=== PATIENT | female | born 1990 ===

== ENCOUNTER 2016-07-18 03:36 | Emergency (ER) | payer OTHER ==
[2016-07-18 03:51] VITALS: RESP 20
--- NOTE | 2016-07-18 04:10 | C.PDOC ---
History Of Present Illness Patient present to the ER with a complaint of shortness of breath. Patient states she woke up with symptoms. Patient notes she is 7 weeks and has had similar episodes in previous pregnancies. Patient reports having asthma and is 3, para 1. Denies fever, chills, nausea, vomiting, and diarrhea. Time Seen by Provider: 07/18/16 04:09 Chief Complaint (Nursing): Shortness Of Breath History Per: Patient History/Exam Limitations: no limitations Onset/Duration Of Symptoms: Hrs Current Symptoms Are (Timing): Still Present Severity: Mild Pain Scale Rating Of: 3 Associated Symptoms: denies: Fever, Chills Past Medical History Vital Signs: Last Vital Signs Temp 98.5 F 07/18/16 03:45 Pulse 68 07/18/16 03:45 Resp 20 07/18/16 04:34 BP 102/61 07/18/16 03:45 Pulse Ox 99 07/18/16 04:43 - Medical History PMH: Asthma Family History: States: No Known Family Hx - Social History Hx Tobacco Use: No Hx Alcohol Use: No Hx Substance Use: No - Immunization History Hx Tetanus Toxoid Vaccination: No Hx Influenza Vaccination: No Hx Pneumococcal Vaccination: No Review Of Systems Except As Marked, All Systems Reviewed And Found Negative. Constitutional: Negative for: Fever, Chills Cardiovascular: Negative for: Chest Pain Respiratory: Positive for: Shortness of Breath Gastrointestinal: Negative for: Nausea, Vomiting, Diarrhea Physical Exam - Physical Exam Appears: Well, Non-toxic Skin: Warm, Dry Oral Mucosa: Moist Chest: Symmetrical Cardiovascular: Rhythm Regular Respiratory: No Rales, No Rhonchi, No Wheezing Gastrointestinal/Abdominal: Soft, No Tenderness, No Distention, No Guarding, No Rebound Extremity: Normal ROM, No Tenderness Neurological/Psych: Oriented x3 ED Course And Treatment - Laboratory Results Result Diagrams: 07/18/16 04:33 07/18/16 04:33 O2 Sat by Pulse Oximetry: 99 Progress Note: Blood work, nebulizer treatment, and peak flow pre/post TX bid ordered. IV fluids and Reglan IVPB administered. Disposition Counseled Patient/Family Regarding: Studies Performed, Diagnosis - Disposition Disposition Time: 04:10 Condition: UNKNOWN - Clinical Impression Clinical Impression: Abdominal pain Physician Patient Turnover Patient Signed Over To: Ryan Estrada Handoff Comments: pending US and disposition
[2016-07-18] MEDS ORDERED: Sodium Chloride 0.9% 1,000 ML IV ONE (04:15)
[2016-07-18 04:20] LABS: RBC URINE 3 /hpf (0-3); URINE BACTERIA RARE (<OCC); URINE BILIRUBIN NEGATIVE (NEGATIVE); URINE BLOOD NEGATIVE (NEGATIVE); URINE COLOR Yellow (YELLOW); URINE GLUCOSE (UA) NORMAL (Normal); URINE KETONE 2+ mg/dL (NEGATIVE); URINE LEUKOCYTE ESTERASE NEG Leu/uL (Negative); URINE PROTEIN NEGATIVE (NEGATIVE); URINE UROBILINOGEN NORMAL mg/dL (0.2-1.0); WBC URINE 3 /hpf (0-5)
[2016-07-18] MEDS: Albuterol-Ipratrop 3 mg / 0.5 (3 ml) UD IH SCH ×2 (04:30→04:35)
[2016-07-18] MEDS ORDERED: Sodium Chloride 0.9% 1,000 ML ONE (04:41)
[2016-07-18] MEDS ORDERED: Albuterol-Ipratrop 3 mg / 0.5 (3 ml) UD ONE (04:41)
[2016-07-18 04:48] LABS: CHLORIDE 102 mmol/L (98-107); INR 1.1
[2016-07-18 04:49] LABS: POTASSIUM 3.9 mmol/L (3.6-5.2); SODIUM 137 mmol/L (132-148)
[2016-07-18 04:51] LABS: AST/SGOT 31 U/L (14-36); BILIRUBIN,TOTAL 1.4 mg/dL (0.2-1.3); CARBON DIOXIDE 23 mmol/L (22-30); GFR AFRICAN-AMERICAN > 60
[2016-07-18 04:52] LABS: ALB/GLOB RATIO 1.1 (1.0-2.1); ALKALINE PHOSPHATASE 33 U/L (38-126); ALT/SGPT 22 U/L (9-52); BLOOD UREA NITROGEN 9 mg/dL (7-17); CALCIUM 8.5 mg/dl (8.6-10.4); GLUCOSE,RANDOM 85 mg/dL (65-105); TOTAL PROTEIN 6.9 g/dL (6.3-8.3)
[2016-07-18] MEDS ORDERED: DiphenhydrAMINE 50 mg/ml Inj ONE (05:02)
[2016-07-18] MEDS ORDERED: DiphenhydrAMINE 50 mg/ml Inj IVP STA (05:10)
[2016-07-18 05:29] LABS: BASO % 0.5 % (0.0-2.0); EOS % 0.8 % (0.0-4.0); HEMATOCRIT 34.9 % (34.0-47.0); LYMPH # 1.6 K/uL (1.0-4.3); LYMPH % 39.4 % (20.0-40.0); MEAN CELL VOLUME 79.6 fL (81.0-99.0); MEAN CORPUSCULAR HEMOGLOBIN 27.4 pg (27.0-31.0); MEAN CORPUSCULAR HGB CONC 34.4 g/dL (33.0-37.0); MEAN PLATELET VOLUME 8.5 fL (7.2-11.7); MONO # 0.5 K/uL (0.0-0.8); MONO % 11.2 % (0.0-10.0); NRBC % 0.1 % (0.0-2.0); RED CELL DISTRIBUTION WIDTH 13.7 % (11.5-14.5); WHITE BLOOD COUNT 4.1 K/uL (4.8-10.8)
--- NOTE | 2016-07-18 09:18 | US ---
Indication: abdominal pain, cramps, 7 weeks preg Comparison: None available Technique: Transabdominal pelvic ultrasound. Findings: The uterus measures approximately 10.0 x 6.6 x 6.0 cm. Anteverted. Cervix length measures approximately 3.4 cm. There is a single intrauterine fetus present. The gestational sac measures 2.4 cm and is compatible with a gestational age of 7 weeks 0 days. The crown-rump length measures 1.2 cm and is compatible with a gestational age of 7 weeks 3 days. There is heart motion which measured 152.3 BPM. The right ovary measures 3.2 x 1.6 x 3.1 cm. The left ovary measures 3.8 x 2.2 x 3.6 cm. Blood flow was demonstrated to both ovaries. Impression: Live single intrauterine with estimated gestational age seven weeks 2 days. heart rate 152.3 bpm. Advise an anomaly screen at 16-18 weeks gestational age
[2016-07-18 09:31] VITALS: BP 92/47; PULSE 85; TEMP 98.8; O2SAT 100
== END 2016-07-18 09:48 | disposition home or self-care (01) ==
LOC: C.ER 03:36
DX: O26.891 Other specified pregnancy related conditions, first trimester (principal); R10.9 Unspecified abdominal pain; Z3A.01 Less than 8 weeks gestation of pregnancy

== ENCOUNTER 2016-07-24 15:56 | Emergency (ER) | payer OTHER ==
[2016-07-24 16:06] VITALS: TEMP 98.5; O2SAT 100
[2016-07-24] MEDS ORDERED: Sodium Chloride 0.9% 1,000 ML IV ONE (17:03)
[2016-07-24] MEDS ORDERED: Sodium Chloride 0.9% 1,000 ML ONE (17:08)
--- NOTE | 2016-07-24 17:14 | C.PDOC ---
History Of Present Illness The patient, a 25 y/o female whose PMHx includes Asthma and is currently around 9 weeks , presents to the ED for evaluation of generalized body aches, cough productive of yellow phlegm which began yesterday. Patient also reports that she vomited blood. Patient states she underwent an ultrasound in a hospital located in [place] around 2 weeks ago. Patient states she was evaluated in [facility] for shortness of breath, underwent a CXR, and was discharged. Patient now presents to the ED for further evaluation. She denies fever, chills, back pain, chest pain. Time Seen by Provider: 07/24/16 16:51 Chief Complaint (Nursing): GI Problem History Per: Patient History/Exam Limitations: no limitations Onset/Duration Of Symptoms: Days Current Symptoms Are (Timing): Still Present Location Of Pain: Diffuse Myalgias Associated Symptoms: Cough, Sputum (yellow ), Vomiting. denies: Fever, Chills Ear Symptoms: Bilateral: None Additional History Per: Patient Past Medical History Reviewed: Historical Data, Nursing Documentation, Vital Signs Vital Signs: Last Vital Signs Temp 98.5 F 07/24/16 16:01 Pulse 87 07/24/16 16:01 Resp 18 07/24/16 16:01 BP 117/65 07/24/16 16:01 Pulse Ox 100 07/24/16 18:20 - Medical History PMH: Asthma Surgical History: No Surg Hx Family History: States: Unknown Family Hx - Social History Hx Tobacco Use: No Hx Alcohol Use: No Hx Substance Use: No - Immunization History Hx Tetanus Toxoid Vaccination: No Hx Influenza Vaccination: No Hx Pneumococcal Vaccination: No Review Of Systems Except As Marked, All Systems Reviewed And Found Negative. Constitutional: Negative for: Fever, Chills Cardiovascular: Negative for: Chest Pain Respiratory: Positive for: Cough, Shortness of Breath, Sputum (yellow) Gastrointestinal: Positive for: Vomiting Musculoskeletal: Positive for: Other (+generalized body aches ). Negative for: Back Pain Physical Exam - Physical Exam Appears: Non-toxic, No Acute Distress Skin: Normal Color, Warm, Dry Head: Atraumatic, Normacephalic Eye(s): bilateral: Normal Inspection, EOMI Oral Mucosa: Moist Neck: Normal ROM, Supple Chest: Symmetrical, No Deformity, No Tenderness Cardiovascular: Rhythm Regular, No Murmur Respiratory: Normal Breath Sounds, No Rales, No Rhonchi, No Wheezing Back: Normal Inspection, No Vertebral Tenderness, No Paraspinal Tenderness Extremity: Normal ROM, Capillary Refill (less than 2 seconds), No Swelling Neurological/Psych: Oriented x3, Normal Speech, Normal Cognition Gait: Steady ED Course And Treatment O2 Sat by Pulse Oximetry: 100 (on RA) Pulse Ox Interpretation: Normal Progress Note: labs ordered and reviewed. Patient received Tylenol PO, Zofran IV , and IV Fluids. On re-evaluation abdomen soft, feeling better, in no distress Reassessment Condition: Improved Medical Decision Making Medical Decision Making: Patient reports she was evaluated at [facility] today and had CTA ro R/O PE (neg) Disposition Counseled Patient/Family Regarding: Studies Performed, Diagnosis, Need For Followup - Disposition [facility] Disposition: HOME/ ROUTINE Disposition Time: 18:20 Condition: STABLE Additional Instructions: Follow up with principal mechanical engineer for further evaluation Instructions: Cold Symptoms (ED), Acute Cough (ED) - POA Present On Arrival: None - Clinical Impression Clinical Impression: Influenza-like illness, Cough - PA / CLINIC LEAD / Resident Statement MD/DO has reviewed & agrees with the documentation as recorded. - Scribe Statement The provider has reviewed the documentation as recorded by the Scribe (Paz Jang) All medical record entries made by the Scribe were at my direction and personally dictated by me. I have reviewed the chart and agree that the record accurately reflects my personal performance of the history, physical exam, medical decision making, and the department course for this patient. I have also personally directed, reviewed, and agree with the discharge instructions and disposition.
[2016-07-24 19:04] VITALS: BP 99/59; PULSE 77; RESP 16
== END 2016-07-24 19:07 | disposition home or self-care (01) ==
LOC: C.ER 15:56
DX: J11.1 Influenza due to unidentified influenza virus with other respiratory manifestations (principal); R05 Cough
CPT/HCPCS: 87070; 87430; 87804; 96374; 99285; J2405; J7040

== ENCOUNTER 2016-07-29 14:55 | Emergency (ER) | payer OTHER ==
[2016-07-29 16:07] VITALS: O2SAT 100
--- NOTE | 2016-07-29 17:09 | C.PDOC ---
History Of Present Illness 25 yr old female presents to the ER stating that she took cytotec tablets today for an . The patient reports that afterwards she felt some chest tightness that lasted several minutes. Patient reports that the symptoms resolved but also continues to have cough and fever over the past 2-3 days. Patient denies SOB, nausea, vomiting, abdominal pain, diarrhea, dysuria, hematuria, incontinence, weakness or numbness. Time Seen by Provider: 07/29/16 15:43 Chief Complaint (Nursing): Medical Clearance History Per: Patient History/Exam Limitations: no limitations Onset/Duration Of Symptoms: Persistent (2 months) Current Symptoms Are (Timing): Better Pain Scale Rating Of: 5 Recent travel outside of the [place]: No Past Medical History Reviewed: Historical Data, Nursing Documentation, Vital Signs Vital Signs: Last Vital Signs Temp 100.0 F H 07/29/16 17:28 Pulse 80 07/29/16 17:28 Resp 20 07/29/16 17:28 BP 96/61 L 07/29/16 17:28 Pulse Ox 100 07/29/16 17:28 - Medical History PMH: Asthma, Bronchitis Family History: States: No Known Family Hx - Social History Hx Tobacco Use: No Hx Alcohol Use: No Hx Substance Use: No - Immunization History Hx Tetanus Toxoid Vaccination: No Hx Influenza Vaccination: No Hx Pneumococcal Vaccination: No Review Of Systems Except As Marked, All Systems Reviewed And Found Negative. Constitutional: Negative for: Fever Cardiovascular: Negative for: Chest Pain Respiratory: Negative for: Shortness of Breath Gastrointestinal: Negative for: Nausea, Vomiting, Abdominal Pain, Diarrhea Genitourinary: Negative for: Dysuria, Incontinence, Hematuria Musculoskeletal: Positive for: Back Pain (Right sided ) Neurological: Negative for: Weakness, Numbness Physical Exam - Physical Exam Appears: Non-toxic, No Acute Distress Skin: Warm, Dry, No Pale, No Rash Head: Atraumatic, Normacephalic, Other (No swelling to face or eyes) Eye(s): bilateral: Normal Inspection, PERRL, EOMI Ear(s): Bilateral: Normal Oral Mucosa: Moist Tongue: Normal Appearing, No Swelling Lips: Normal Appearing, No Swelling Throat: Normal, No Erythema, No Exudate, Other (normal uvula) Neck: Normal, Normal ROM, Supple Chest: Symmetrical, No Tenderness Cardiovascular: Rhythm Regular, No Friction Rub, No Murmur Respiratory: Normal Breath Sounds, No Rales, No Rhonchi, No Stridor, No Wheezing Gastrointestinal/Abdominal: Normal Exam, Soft, No Tenderness, No Guarding, No Rebound Back: Normal Inspection, No CVA Tenderness, No Vertebral Tenderness Extremity: Normal ROM, No Tenderness, No Swelling Neurological/Psych: Oriented x3, Normal Speech, Normal Motor, Normal Sensation Gait: Steady ED Course And Treatment O2 Sat by Pulse Oximetry: 100 (on RA) Pulse Ox Interpretation: Normal - Radiology CXR: Interpreted by Me CXR Interpretation: Yes: No Acute Disease. No: Infiltrates Medical Decision Making Medical Decision Making: PLAN: * CXR * Imodium PO * Motrin PO * Prednisone PO Old records reviewed, the patient was seen in [place] ED for cough and fever and was diagnosed with influenza. Patient was discharged with Tamiflu. The chest tightness could have been secondary to flu infection. There are no signs of allergic reaction at this time, (-) angioedema, (-) urticaria/rash, (- ) wheezing. On re-exam, the patient reports improvement of symptoms. Airways are patent. Lungs remain CTA, heart is RRR, abdomen is soft, non-tender and tolerating PO well. Ambulatory in the ED with steady gait. Follow up with the medical doctor within 1-2 days without fail, Return if worsened, Disposition - Disposition Referrals: [facility] [Outside] Disposition: HOME/ ROUTINE Disposition Time: 17:08 Condition: GOOD Additional Instructions: Follow up with the medical doctor within 1-2 days without fail, Return if worsened, Prescriptions: Loperamide HCl [Imodium A-D] 2 mg PO DAILY PRN #10 capsule PRN Reason: Diarrhea Ibuprofen [Motrin] 600 mg PO TID #21 tab predniSONE [Prednisone] 20 mg PO BID #10 tab Instructions: Influenza (ED) - Clinical Impression Clinical Impression: Influenza - PA / HELP DESK INTERN / Resident Statement MD/DO has reviewed & agrees with the documentation as recorded. - Scribe Statement The provider has reviewed the documentation as recorded by the Scribe Ronna Shaw All medical record entries made by the Scribe were at my direction and personally dictated by me. I have reviewed the chart and agree that the record accurately reflects my personal performance of the history, physical exam, medical decision making, and the department course for this patient. I have also personally directed, reviewed, and agree with the discharge instructions and disposition.
[2016-07-29 17:32] VITALS: BP 96/61; PULSE 80; RESP 20; TEMP 100
--- NOTE | 2016-07-30 08:43 | RAD ---
HISTORY: cough, fever COMPARISON: No prior. TECHNIQUE: Chest PA and lateral FINDINGS: LUNGS: No active pulmonary disease. PLEURA: No significant pleural effusion identified. No pneumothorax apparent. CARDIOVASCULAR: Normal. OSSEOUS STRUCTURES: No significant abnormalities. VISUALIZED UPPER ABDOMEN: Normal. OTHER FINDINGS: None. IMPRESSION: No active disease.
== END 2016-07-29 17:32 | disposition home or self-care (01) ==
LOC: C.ER 14:55
DX: J11.1 Influenza due to unidentified influenza virus with other respiratory manifestations (principal)

== ENCOUNTER 2016-08-22 00:24 | Emergency (ER) | payer OTHER ==
[2016-08-22] MEDS ORDERED: Sodium Chloride 0.9% 1,000 ML IV ONE (00:55)
[2016-08-22] MEDS ORDERED: Sodium Chloride 0.9% 1,000 ML ONE (01:40)
[2016-08-22 01:56] LABS: BASO % 0.7 % (0.0-2.0); EOS # 0.2 K/uL (0.0-0.7); EOS % 3.4 % (0.0-4.0); HEMATOCRIT 31.9 % (34.0-47.0); LYMPH # 2.1 K/uL (1.0-4.3); LYMPH % 44.1 % (20.0-40.0); MEAN CELL VOLUME 79.8 fL (81.0-99.0); MEAN CORPUSCULAR HEMOGLOBIN 25.7 pg (27.0-31.0); MEAN CORPUSCULAR HGB CONC 32.2 g/dL (33.0-37.0); MONO # 0.6 K/uL (0.0-0.8); MONO % 12.4 % (0.0-10.0); RED CELL DISTRIBUTION WIDTH 13.3 % (11.5-14.5); WHITE BLOOD COUNT 4.7 K/uL (4.8-10.8)
[2016-08-22 02:07] LABS: CHLORIDE 106 mmol/L (98-107); SODIUM 142 mmol/L (132-148)
[2016-08-22 02:08] LABS: POTASSIUM 3.6 mmol/L (3.6-5.2)
[2016-08-22 02:10] LABS: ALB/GLOB RATIO 1.3 (1.0-2.1); ALKALINE PHOSPHATASE 57 U/L (38-126); ALT/SGPT 16 U/L (9-52); AST/SGOT 15 U/L (14-36); BILIRUBIN,TOTAL 0.1 mg/dL (0.2-1.3); BLOOD UREA NITROGEN 15 mg/dL (7-17); CALCIUM 8.3 mg/dl (8.6-10.4); CARBON DIOXIDE 26 mmol/L (22-30); GFR AFRICAN-AMERICAN > 60; GLUCOSE,RANDOM 86 mg/dL (65-105); TOTAL PROTEIN 6.3 g/dL (6.3-8.3)
[2016-08-22 02:11] LABS: MAGNESIUM 1.9 mg/dL (1.6-2.3)
[2016-08-22 02:13] LABS: RBC URINE 7 /hpf (0-3); URINE BACTERIA RARE (<OCC); URINE BILIRUBIN NEGATIVE (NEGATIVE); URINE BLOOD NEGATIVE (NEGATIVE); URINE COLOR Yellow (YELLOW); URINE GLUCOSE (UA) NORMAL (Normal); URINE KETONE NEGATIVE (NEGATIVE); URINE LEUKOCYTE ESTERASE TRACE Leu/uL (Negative); URINE PROTEIN NEGATIVE (NEGATIVE); URINE UROBILINOGEN NORMAL mg/dL (0.2-1.0); WBC URINE 2 /hpf (0-5)
--- NOTE | 2016-08-22 03:07 | C.PDOC ---
Time Seen by Provider: 08/22/16 00:41 Chief Complaint (Nursing): Dizziness/Lightheaded History Per: Patient Onset/Duration Of Symptoms: Days (about 1 week), Waxing/Waning Current Symptoms Are (Timing): Still Present Possible Causative Factor(s): Lightheaded W/Exertion, Other (Recent elective ) Fall Associated With With Symptoms: No Severity: Moderate Additional History Per: Prior Records - Symptoms Of CVA Recent Head Trauma: No Past Medical History Reviewed: Historical Data, Nursing Documentation, Vital Signs Vital Signs: Last Vital Signs Temp 97.9 F 08/22/16 00:29 Pulse 78 08/22/16 00:29 Resp 20 08/22/16 00:29 BP 102/67 08/22/16 00:29 Pulse Ox 99 08/22/16 03:08 - Medical History PMH: Asthma, Bronchitis Surgical History: No Surg Hx Family History: States: Unknown Family Hx - Social History Hx Tobacco Use: No Hx Alcohol Use: No Hx Substance Use: No - Immunization History Hx Tetanus Toxoid Vaccination: No Hx Influenza Vaccination: No Hx Pneumococcal Vaccination: No Review Of Systems Except As Marked, All Systems Reviewed And Found Negative. Constitutional: Negative for: Fever Cardiovascular: Negative for: Chest Pain Respiratory: Negative for: Shortness of Breath, Hemoptysis Gastrointestinal: Negative for: Vomiting, Abdominal Pain Musculoskeletal: Negative for: Neck Pain, Back Pain, Leg Pain Skin: Negative for: Rash Neurological: Positive for: Headache (?), Dizziness. Negative for: Weakness, Numbness, Incoordination, Change in Speech, Confusion, Seizures Physical Exam - Physical Exam Appears: Non-toxic, No Acute Distress Skin: Normal Color, Warm, Dry, No Rash Head: Atraumatic, Normacephalic Eye(s): bilateral: PERRL, EOMI Ear(s): Bilateral: Normal Neck: Normal ROM, Supple Cardiovascular: Rhythm Regular Respiratory: Normal Breath Sounds, No Accessory Muscle Use Gastrointestinal/Abdominal: Soft, No Tenderness Back: No CVA Tenderness Extremity: Normal ROM, No Pedal Edema, No Calf Tenderness Neurological/Psych: Oriented x3, Normal Speech, Normal Cognition, Normal Cranial Nerves, No Cerebellar Signs, Normal Motor, Normal Sensation ED Course And Treatment - Laboratory Results Result Diagrams: 08/22/16 01:53 08/22/16 01:53 Lab Interpretation: Abnormal Interpretation Of Abnormal: Anemia. Urine POC: Negative O2 Sat by Pulse Oximetry: 99 Pulse Ox Interpretation: Normal - CT Scan/US CT head Other Rad Studies (CT/US): Read By Radiologist, Radiology Report Reviewed CT/US Interpretation: IMPRESSION: No intracranial hemorrhage. No findings to suggest acute sinusitis. . No abnormality suspicious for acute stroke or pituitary pathology by. noncontrast head CT. If there is clinical suspicion for other pathology,. please note that other modalities are considered to be more sensitive than. axial noncontrast head CT. Reassessment Condition: Improved Disposition Counseled Patient/Family Regarding: Studies Performed, Diagnosis, Need For Followup, Rx Given - Disposition Disposition: HOME/ ROUTINE Disposition Time: 03:44 Condition: STABLE Additional Instructions: Follow up with your doctor for further evaluation and treatment. Return to the ER if you develop worsening of symptoms or if you have any other concerns. Prescriptions: Ferrous Sulfate [Feosol] 325 mg PO TID #30 tab Instructions: Anemia (ED) - Clinical Impression Clinical Impression: Dizziness, Anemia
--- NOTE | 2016-08-22 03:38 | CT ---
EXAM: CT Head Without Intravenous Contrast CLINICAL HISTORY: 25 years old, female; Pain; Headache; Additional info: Dizziness, headache TECHNIQUE: Axial computed tomography images of the head/brain without intravenous contrast. EXAM DATE/TIME: Exam ordered 08/22/2016 12:55 AM COMPARISON: No relevant prior studies available. FINDINGS: Brain: No intracranial hemorrhage. Ventricles are within normal limits. No significant white matter disease. No edema. Ventricles: See above. Bones/joints: Unremarkable. No acute fracture. Soft tissues: Unremarkable. Sinuses: Unremarkable as visualized. No acute sinusitis. Mastoid air cells: Unremarkable as visualized. No mastoid effusion. Other findings: This study was protocoled on site and performed as per site directions, the images were subsequently sent for review by radiology. IMPRESSION: No intracranial hemorrhage. No findings to suggest acute sinusitis. No abnormality suspicious for acute stroke or pituitary pathology by noncontrast head CT. If there is clinical suspicion for other pathology, please note that other modalities are considered to be more sensitive than axial noncontrast head CT.
[2016-08-22 03:54] VITALS: BP 96/57; PULSE 65; RESP 16; TEMP 98.4; O2SAT 100
== END 2016-08-22 03:55 | disposition home or self-care (01) ==
LOC: C.ER 00:24
DX: R42 Dizziness and giddiness (principal); D64.9 Anemia, unspecified
CPT/HCPCS: 70450; 80053; 80324; 80345; 80346; 80349; 80353; 80358; 80361; 81001; 83735; 83992; 84703; 85025; 96360; 99285; J7040

== ENCOUNTER → 2016-08-29 20:32 | Emergency (ER) | payer OTHER | END | disposition left against medical advice (07) | LOC: C.ER 20:32 | DX: R07.9 Chest pain, unspecified (principal); Z02.9 Encounter for administrative examinations, unspecified ==

== ENCOUNTER 2016-09-03 22:35 | Emergency (ER) | payer OTHER ==
[2016-09-03 22:49] VITALS: BP 101/62; PULSE 60; RESP 20; TEMP 98.6; O2SAT 100
--- NOTE | 2016-09-04 00:02 | C.PDOC ---
History Of Present Illness A 25 year old female presents to the ER c/o chest pain that radiates to the back with dry cough and SOB for 2 days. Patient describes the chest pain as tightness of the chest. Patient denies palpitations, dizziness, numbness or weakness, or any other complaints. Patient was seen 08/29/2016 with full cardiac workup that was normal. Patient denies trauma, fever, chills, nausea, vomiting, recent travel , leg pain or swelling, recent immobility state, or any other complaints. Pt reportedly used her albuterol inhaler with relief. Time Seen by Provider: 09/03/16 23:02 Chief Complaint (Nursing): Chest Pain History Per: Patient History/Exam Limitations: no limitations Onset/Duration Of Symptoms: Days Current Symptoms Are (Timing): Still Present Severity: Mild Quality: Tightness Associated Symptoms: denies: Nausea Recent travel outside of the [place]: No Additional History Per: Patient Past Medical History Reviewed: Historical Data, Nursing Documentation, Vital Signs Vital Signs: Last Vital Signs Temp 98.6 F 09/03/16 22:46 Pulse 60 09/03/16 22:46 Resp 20 09/03/16 22:46 BP 101/62 09/03/16 22:46 Pulse Ox 100 09/04/16 02:36 - Medical History PMH: Asthma, Bronchitis Family History: States: Unknown Family Hx - Social History Hx Tobacco Use: No Hx Alcohol Use: No Hx Substance Use: No - Immunization History Hx Tetanus Toxoid Vaccination: No Hx Influenza Vaccination: No Hx Pneumococcal Vaccination: No Review Of Systems Except As Marked, All Systems Reviewed And Found Negative. Constitutional: Negative for: Fever, Chills, Other (Trauma) Cardiovascular: Positive for: Chest Pain. Negative for: Palpitations Respiratory: Positive for: Cough, Shortness of Breath Gastrointestinal: Negative for: Nausea, Vomiting Musculoskeletal: Positive for: Back Pain Neurological: Negative for: Weakness (Upper extremities), Numbness (Upper extremities), Dizziness Physical Exam - Physical Exam Appears: Non-toxic, No Acute Distress Skin: Warm, Dry Head: Atraumatic, Normacephalic Eye(s): bilateral: Normal Inspection, PERRL, EOMI Neck: Normal Cardiovascular: Rhythm Regular, No Murmur Respiratory: Normal Breath Sounds, No Rales, No Rhonchi, No Wheezing Gastrointestinal/Abdominal: Normal Exam, Soft, No Tenderness Back: Normal Inspection, No CVA Tenderness, No Paraspinal Tenderness Neurological/Psych: Oriented x3, Normal Cognition ED Course And Treatment ECG: Interpreted By Me, Viewed By Me ECG Rhythm: Sinus Bradycardia (With sinus arrhythmia at 56 bpm) ECG Interpretation: No Acute Changes O2 Sat by Pulse Oximetry: 100 (Room air) Pulse Ox Interpretation: Normal Progress Note: Pt is sleeping soundly in stretcher with her partner, easily arousable in NAD, VSS. Pt had 2 cardiac work up recently on 08/22 and 08/29 incl CXR all WNL, pt given PO motrin and prednisone and advised to continue PO steroid and albuterol MDI and follow up Medical Decision Making Medical Decision Making: Plans: -PredniSONE -Motrin -Reassess and disposition Patient is sleeping comfortably and in no acute distress. Disposition Counseled Patient/Family Regarding: Diagnosis - Disposition Referrals: [facility] [Outside] Disposition: HOME/ ROUTINE Disposition Time: 00:10 Condition: STABLE Additional Instructions: Motrin for pain Continue albuterol inhaler Prednisone PO Return to ER if worse Prescriptions: predniSONE [Prednisone] 40 mg PO DAILY #8 tab Instructions: Asthma (ED) - Clinical Impression Clinical Impression: Asthma - Scribe Statement The provider has reviewed the documentation as recorded by the Scribe Jennifer rodgers All medical record entries made by the Scribe were at my direction and personally dictated by me. I have reviewed the chart and agree that the record accurately reflects my personal performance of the history, physical exam, medical decision making, and the department course for this patient. I have also personally directed, reviewed, and agree with the discharge instructions and disposition.
== END 2016-09-04 00:22 | disposition home or self-care (01) ==
LOC: C.ER 22:35
DX: J45.909 Unspecified asthma, uncomplicated (principal)

== ENCOUNTER 2016-09-05 17:39 | Emergency (ER) | payer OTHER ==
[2016-09-05 17:50] VITALS: RESP 18; TEMP 98.2; O2SAT 100
--- NOTE | 2016-09-05 18:01 | C.PDOC ---
History Of Present Illness 25 year old female presents to the ER feeling facial numbness for several weeks. Patient notes the symptom as waxing and waning. Patient states that "I accidentally opened an unknown bottle of medications and somehow the powder of the bottle accidentally went up my nose". Patient reports denies fever, chills , nausea, vomiting, diarrhea, or any other complaints. Patient notes being on her way to see her neurologist for her chronic facial problems. Chief Complaint (Nursing): Weakness/Neurological Deficit History Per: Patient History/Exam Limitations: no limitations Onset/Duration Of Symptoms: Days Current Symptoms Are (Timing): Still Present Severity: Mild Recent travel outside of the [place]: No Additional History Per: Patient Past Medical History Reviewed: Historical Data, Nursing Documentation, Vital Signs Vital Signs: Last Vital Signs Temp 98.2 F 09/05/16 19:54 Pulse 54 L 09/05/16 19:54 Resp 18 09/05/16 19:54 BP 99/61 L 09/05/16 19:54 Pulse Ox 100 09/05/16 21:10 - Medical History PMH: Asthma, Bronchitis Family History: States: Unknown Family Hx - Social History Hx Tobacco Use: No Hx Alcohol Use: No Hx Substance Use: No - Immunization History Hx Tetanus Toxoid Vaccination: No Hx Influenza Vaccination: No Hx Pneumococcal Vaccination: No Review Of Systems Except As Marked, All Systems Reviewed And Found Negative. Constitutional: Negative for: Fever, Chills Gastrointestinal: Negative for: Nausea, Vomiting, Diarrhea Neurological: Positive for: Numbness (Facial numbness) Physical Exam - Physical Exam Appears: Non-toxic, No Acute Distress, Other (Anxious) Skin: Normal Color, Warm, Dry Head: Atraumatic, Normacephalic Eye(s): bilateral: Normal Inspection, PERRL, EOMI Cardiovascular: Rhythm Regular, No Murmur Respiratory: Normal Breath Sounds, No Rales, No Rhonchi, No Wheezing Extremity: Normal ROM Neurological/Psych: Oriented x3, Normal Speech, Normal Cognition, Normal Cranial Nerves, No Other (No focal deficit) ED Course And Treatment - Laboratory Results Result Diagrams: 09/05/16 18:13 09/05/16 18:13 Lab Interpretation: Abnormal (+ TOX Sneha's) Urine POC: Negative ECG: Interpreted By Me ECG Rhythm: Sinus Rhythm ECG Interpretation: Normal Rate From EC O2 Sat by Pulse Oximetry: 100 (RA) Pulse Ox Interpretation: Normal - Radiology CXR Interpretation: Yes: Other (refused) - Other Rad head CT X-Ray: Read By Radiologist (neg) Reevaluation Time: 19:37 Reassessment Condition: Improved Medical Decision Making Medical Decision Making: pt with h/o panic and anxiety prob increased anxiety to visit Neurologist today Neurologically normal Sneha + tox ? Fioricet use. Plans: -EKG -IV fluids -Reassess and disposition opt f/u. No Xanax/Ativan given as pt claims prior Xanax PO 11/17 made facial parasthesias worse. Disposition Doctor Will See Patient In The: Office Counseled Patient/Family Regarding: Studies Performed, Diagnosis - Disposition Referrals: [facility] [Outside] [facility] at [facility] [Outside] Disposition: HOME/ ROUTINE Disposition Time: 19:38 Condition: GOOD Additional Instructions: follow-up as outpatient with your Neurologist for further eval Instructions: Paresthesia (ED) - Clinical Impression Clinical Impression: Facial numbness - Scribe Statement The provider has reviewed the documentation as recorded by the Scribe Jennifer rodgers All medical record entries made by the Scribe were at my direction and personally dictated by me. I have reviewed the chart and agree that the record accurately reflects my personal performance of the history, physical exam, medical decision making, and the department course for this patient. I have also personally directed, reviewed, and agree with the discharge instructions and disposition.
[2016-09-05 18:24] LABS: POTASSIUM 3.8 mmol/L (3.6-5.2); SODIUM 141 mmol/L (132-148)
[2016-09-05 18:26] LABS: ALB/GLOB RATIO 1.4 (1.0-2.1); BILIRUBIN,TOTAL 0.5 mg/dL (0.2-1.3); BLOOD UREA NITROGEN 12 mg/dL (7-17); CARBON DIOXIDE 27 mmol/L (22-30); CHOLESTEROL 157 mg/dL (0-199); GFR AFRICAN-AMERICAN > 60; TOTAL PROTEIN 7.2 g/dL (6.3-8.3)
[2016-09-05 18:27] LABS: ALCOHOL SERUM < 10 mg/dl (0-10); ALKALINE PHOSPHATASE 75 U/L (38-126); ALT/SGPT 17 U/L (9-52); AST/SGOT 17 U/L (14-36); CALCIUM 8.6 mg/dl (8.6-10.4); GLUCOSE,RANDOM 84 mg/dL (65-105)
[2016-09-05 18:34] LABS: BASO % 0.7 % (0.0-2.0); EOS # 0.2 K/uL (0.0-0.7); EOS % 3.4 % (0.0-4.0); HEMATOCRIT 37.3 % (34.0-47.0); LYMPH # 2.2 K/uL (1.0-4.3); LYMPH % 47.3 % (20.0-40.0); MEAN CORPUSCULAR HEMOGLOBIN 25.6 pg (27.0-31.0); MEAN PLATELET VOLUME 8.4 fL (7.2-11.7); MONO # 0.5 K/uL (0.0-0.8); MONO % 10.8 % (0.0-10.0); RED CELL DISTRIBUTION WIDTH 13.9 % (11.5-14.5); WHITE BLOOD COUNT 4.6 K/uL (4.8-10.8)
--- NOTE | 2016-09-05 18:51 | CT ---
PROCEDURE: CT HEAD WITHOUT CONTRAST. HISTORY: acute on chronic facial numbness COMPARISON: Noncontrast head CT performed 08/22/16 TECHNIQUE: Axial computed tomography images were obtained through the head/brain without intravenous contrast. Radiation dose: Total exam DLP = 925.20 mGy-cm. This CT exam was performed using one or more of the following dose reduction techniques: Automated exposure control, adjustment of the mA and/or kV according to patient size, and/or use of iterative reconstruction technique. FINDINGS: Streak artifact obscures evaluation of the skullbase. HEMORRHAGE: No intracranial hemorrhage. BRAIN: No mass effect or edema. No atrophy or chronic microvascular ischemic changes.Please note that MRI with diffusion imaging is more sensitive in the detection of acute ischemic event. VENTRICLES: No hydrocephalus. CALVARIUM: Unremarkable. PARANASAL SINUSES: Unremarkable as visualized. No significant inflammatory changes. MASTOID AIR CELLS: Unremarkable as visualized. No inflammatory changes. OTHER FINDINGS: Adenoid prominence. IMPRESSION: No acute intracranial pathology identified. Adenoid prominence.
[2016-09-05 19:00] LABS: RBC URINE < 1 /hpf (0-3); URINE BACTERIA OCC (<OCC); URINE BILIRUBIN NEGATIVE (NEGATIVE); URINE BLOOD NEGATIVE (NEGATIVE); URINE COLOR Yellow (YELLOW); URINE GLUCOSE (UA) NORMAL (Normal); URINE KETONE NEGATIVE (NEGATIVE); URINE LEUKOCYTE ESTERASE NEG Leu/uL (Negative); URINE PROTEIN NEGATIVE (NEGATIVE); URINE UROBILINOGEN NORMAL mg/dL (0.2-1.0); WBC URINE 1 /hpf (0-5)
[2016-09-05 19:55] VITALS: BP 99/61; PULSE 54
--- NOTE | 2016-09-06 17:08 | CARD ---
APPROVED REPORT EKG Measurement Heart [id number] 120P47 [id number] <Conclusion> Sinus bradycardia Otherwise normal ECG
[2016-09-06 17:27] LABS: CHLORIDE 103 mmol/L (98-107)
== END 2016-09-05 19:54 | disposition home or self-care (01) ==
LOC: C.ER 17:39
DX: R20.0 Anesthesia of skin (principal)

== ENCOUNTER 2016-09-08 13:09 | Emergency (ER) | payer OTHER ==
[2016-09-08 13:22] VITALS: RESP 20
--- NOTE | 2016-09-08 16:07 | C.PDOC ---
History Of Present Illness 25-year-old female, presents to the emergency department with complaints of chest pain x1 year, patient notes an episode of palpitations, chest pain, hand numbness, and lip numbness. She has been to ED multiple times, including 4 visits in 2 weeks. Patient has been referred to cardiology and psych. Pending cardiology appointment at the end of this month, unable to find psych due to insurance. Time Seen by Provider: 09/08/16 13:31 Chief Complaint (Nursing): Chest Pain History Per: Patient History/Exam Limitations: no limitations Onset/Duration Of Symptoms: Days Current Symptoms Are (Timing): Still Present Severity: Moderate Past Medical History Reviewed: Historical Data, Nursing Documentation, Vital Signs Vital Signs: Last Vital Signs Temp 98.5 F 09/08/16 16:27 Pulse 79 09/08/16 16:27 Resp 20 09/08/16 16:27 BP 135/93 H 09/08/16 16:27 Pulse Ox 100 09/08/16 18:32 - Medical History PMH: Asthma, Bronchitis Family History: States: Unknown Family Hx - Social History Hx Tobacco Use: No Hx Alcohol Use: No Hx Substance Use: No - Immunization History Hx Tetanus Toxoid Vaccination: No Hx Influenza Vaccination: No Hx Pneumococcal Vaccination: No Review Of Systems Except As Marked, All Systems Reviewed And Found Negative. Constitutional: Negative for: Fever, Chills Eyes: Negative for: Vision Change Cardiovascular: Positive for: Chest Pain, Palpitations Gastrointestinal: Negative for: Nausea, Vomiting Neurological: Positive for: Numbness. Negative for: Incoordination, Change in Speech, Seizures, Altered Mental Status, Headache, Dizziness Physical Exam - Physical Exam Appears: Non-toxic, No Acute Distress, Other Skin: Warm, Dry, No Rash Head: Atraumatic, Normacephalic Eye(s): bilateral: Normal Inspection, PERRL Nose: Normal Oral Mucosa: Moist Neck: Normal ROM Cardiovascular: Rhythm Regular, No Murmur Respiratory: Normal Breath Sounds, No Rales, No Wheezing Gastrointestinal/Abdominal: Soft, No Tenderness Extremity: Normal ROM Neurological/Psych: Oriented x3, Normal Speech, Normal Cognition, Other (no focal deficits.) ED Course And Treatment ECG: Interpreted By Me ECG Rhythm: Sinus Rhythm ECG Interpretation: Normal O2 Sat by Pulse Oximetry: 100 Medical Decision Making Medical Decision Making: Pt has no risk, normal ekg, and very atypical hx no indication of acs pe Discussed anxiety with and SO, seen briefly by crisis given phone # for [facility] Disposition Counseled Patient/Family Regarding: Need For Followup - Disposition Disposition: HOME/ ROUTINE Disposition Time: 16:07 Condition: GOOD Additional Instructions: Call to make an apt at [facility] Instructions: Generalized Anxiety Disorder (ED) - Clinical Impression Clinical Impression: Anxiety attack - Scribe Statement The provider has reviewed the documentation as recorded by the Bettyibgwendolyn Salas All medical record entries made by the Bettyibgwendolyn were at my direction and personally dictated by me. I have reviewed the chart and agree that the record accurately reflects my personal performance of the history, physical exam, medical decision making, and the department course for this patient. I have also personally directed, reviewed, and agree with the discharge instructions and disposition.
[2016-09-08 16:28] VITALS: BP 135/93; PULSE 79; TEMP 98.5
[2016-09-08 18:29] VITALS: O2SAT 100
--- NOTE | 2016-09-13 13:14 | CARD ---
APPROVED REPORT EKG Measurement Heart [id number] NV 120P58 [id number] <Conclusion> Normal sinus rhythm with sinus arrhythmia Normal ECG
== END 2016-09-08 16:28 | disposition home or self-care (01) ==
LOC: C.ER 13:09
DX: F41.9 Anxiety disorder, unspecified (principal)

== ENCOUNTER 2016-09-08 23:08 | Emergency (ER) | payer OTHER ==
[2016-09-08 23:18] VITALS: O2SAT 100
--- NOTE | 2016-09-09 00:55 | C.PDOC ---
History Of Present Illness 25 y/o female presents to ED with complaint of left sided chest wall pain and left arm pain 1 hour prior to arrival. Patient reports feeling better on arrival. Denies trauma. pt has been worked up for the similar symptoms on numerous occasions Time Seen by Provider: 09/09/16 00:54 Chief Complaint (Nursing): Chest Pain History Per: Patient History/Exam Limitations: no limitations Onset/Duration Of Symptoms: Days Current Symptoms Are (Timing): Still Present Severity: Mild Pain Scale Rating Of: 3 Quality: "Pain" Associated Symptoms: denies: Nausea, Dyspnea, Diaphoresis Recent travel outside of the [place]: No Past Medical History Reviewed: Historical Data, Nursing Documentation, Vital Signs Vital Signs: Last Vital Signs Temp 97.5 F L 09/08/16 23:16 Pulse 68 09/08/16 23:16 Resp 20 09/08/16 23:16 BP 97/62 L 09/08/16 23:16 Pulse Ox 100 09/09/16 02:04 - Medical History PMH: Asthma, Bronchitis, Cardia Arrhythmia (appt 09/25) Family History: States: Unknown Family Hx - Social History Hx Tobacco Use: No Hx Alcohol Use: No Hx Substance Use: No - Immunization History Hx Tetanus Toxoid Vaccination: No Hx Influenza Vaccination: No Hx Pneumococcal Vaccination: No Review Of Systems Constitutional: Negative for: Fever, Chills Cardiovascular: Negative for: Palpitations Respiratory: Negative for: Cough, Shortness of Breath, Wheezing Gastrointestinal: Negative for: Nausea, Vomiting Musculoskeletal: Positive for: Arm Pain (left), Other (left chest wall pain) Skin: Negative for: Rash Neurological: Negative for: Dizziness Physical Exam - Physical Exam Appears: Non-toxic, No Acute Distress Skin: Warm, Dry Head: Atraumatic, Normacephalic Chest: Symmetrical Cardiovascular: Rhythm Regular Respiratory: No Rales, No Rhonchi, No Wheezing Gastrointestinal/Abdominal: Soft, No Tenderness, No Guarding, No Rebound Back: Normal Inspection Extremity: Normal ROM, Capillary Refill (< 2 sec. ) Neurological/Psych: Oriented x3, Normal Speech, Normal Cognition ED Course And Treatment - Laboratory Results Result Diagrams: 09/09/16 01:43 09/09/16 01:43 ECG: Interpreted By Me, Viewed By Me ECG Rhythm: Sinus Rhythm, Nonspecific Changes O2 Sat by Pulse Oximetry: 100 (RA) Pulse Ox Interpretation: Normal Progress Note: Aspirin 325mg given. EKG, CxR, bloodwork ordered. pt refused cxr Disposition Counseled Patient/Family Regarding: Studies Performed, Diagnosis, Need For Followup - Disposition Referrals: [facility] [Outside] Disposition: HOME/ ROUTINE Disposition Time: 00:55 Condition: FAIR Instructions: Costochondritis (ED) - Clinical Impression Clinical Impression: Costochondral chest pain - Scribe Statement The provider has reviewed the documentation as recorded by the Willie King Provider Scribe Attestation: All medical record entries made by the Willie were at my direction and personally dictated by me. I have reviewed the chart and agree that the record accurately reflects my personal performance of the history, physical exam, medical decision making, and the department course for this patient. I have also personally directed, reviewed, and agree with the discharge instructions and disposition.
[2016-09-09] MEDS ORDERED: Aspirin 325 mg EC Tablets PO STA (01:03)
[2016-09-09 01:47] LABS: BASO % 0.8 % (0.0-2.0); EOS # 0.1 K/uL (0.0-0.7); EOS % 2.6 % (0.0-4.0); HEMATOCRIT 34.8 % (34.0-47.0); LYMPH # 2.5 K/uL (1.0-4.3); LYMPH % 51.4 % (20.0-40.0); MEAN CELL VOLUME 79.5 fL (81.0-99.0); MEAN CORPUSCULAR HEMOGLOBIN 25.8 pg (27.0-31.0); MEAN CORPUSCULAR HGB CONC 32.5 g/dL (33.0-37.0); MEAN PLATELET VOLUME 8.3 fL (7.2-11.7); MONO # 0.5 K/uL (0.0-0.8); MONO % 10.4 % (0.0-10.0); NRBC % 0.1 % (0.0-2.0); RED CELL DISTRIBUTION WIDTH 13.4 % (11.5-14.5); WHITE BLOOD COUNT 4.8 K/uL (4.8-10.8)
[2016-09-09 01:55] LABS: CHLORIDE 103 mmol/L (98-107); POTASSIUM 3.7 mmol/L (3.6-5.2); SODIUM 142 mmol/L (132-148)
[2016-09-09 01:57] LABS: GFR AFRICAN-AMERICAN > 60
[2016-09-09 01:58] LABS: ALB/GLOB RATIO 1.2 (1.0-2.1); ALKALINE PHOSPHATASE 66 U/L (38-126); ALT/SGPT 22 U/L (9-52); AST/SGOT 18 U/L (14-36); BILIRUBIN,TOTAL 0.5 mg/dL (0.2-1.3); BLOOD UREA NITROGEN 14 mg/dL (7-17); CARBON DIOXIDE 27 mmol/L (22-30); GLUCOSE,RANDOM 92 mg/dL (65-105); TOTAL PROTEIN 6.5 g/dL (6.3-8.3)
[2016-09-09 01:59] LABS: CALCIUM 8.2 mg/dl (8.6-10.4)
[2016-09-09] MEDS ORDERED: Aspirin 325 mg EC Tablets PO ONE (02:24)
[2016-09-09 02:37] VITALS: BP 108/47; PULSE 62; RESP 18; TEMP 97.9
== END 2016-09-09 02:42 | disposition home or self-care (01) ==
LOC: C.ER 23:08
DX: R07.9 Chest pain, unspecified (principal)

== ENCOUNTER 2016-09-23 18:47 | Emergency (ER) | payer OTHER ==
[2016-09-23 18:48] VITALS: BMI 22.3
[2016-09-23 18:56] VITALS: O2SAT 100
[2016-09-23 19:00] VITALS: RESP 18
--- NOTE | 2016-09-23 21:52 | C.PDOC ---
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) Current Symptoms Are (Timing): Better Number Of Syncopal Episodes: 1 Fall Associated With With Symptoms: No Severity: Moderate Additional History Per: Prior Records - Symptoms Of CVA Associated Symptoms: denies: Impaired Speech, Seizure Activity, New Vision Deficit(Left), New Vision Deficit(Right), Decreased Ability To Walk, New Confusion Recent Head Trauma: No Past Medical History Reviewed: Historical Data, Nursing Documentation, Vital Signs Vital Signs: Last Vital Signs Temp 98.1 F 09/23/16 18:59 Pulse 69 09/23/16 18:59 Resp 18 09/23/16 18:59 BP 107/64 09/23/16 18:59 Pulse Ox 100 09/23/16 18:59 - Medical History PMH: Asthma, Bronchitis Family History: States: Unknown Family Hx - Social History Hx Tobacco Use: No Hx Alcohol Use: No Hx Substance Use: No - Immunization History Hx Tetanus Toxoid Vaccination: No Hx Influenza Vaccination: No Hx Pneumococcal Vaccination: No Review Of Systems Except As Marked, All Systems Reviewed And Found Negative. Constitutional: Negative for: Fever, Weakness Cardiovascular: Negative for: Chest Pain, Palpitations Respiratory: Negative for: Shortness of Breath, Hemoptysis Gastrointestinal: Negative for: Vomiting, Abdominal Pain Musculoskeletal: Negative for: Neck Pain, Back Pain, Leg Pain Skin: Negative for: Rash Neurological: Negative for: Weakness, Numbness, Seizures, Altered Mental Status Physical Exam - Physical Exam Appears: Non-toxic, No Acute Distress Skin: Normal Color, Warm, Dry, No Rash Head: Atraumatic, Normacephalic Eye(s): bilateral: Normal Inspection, PERRL, EOMI Neck: Normal ROM, Supple Cardiovascular: Rhythm Regular Respiratory: Normal Breath Sounds, No Accessory Muscle Use Gastrointestinal/Abdominal: Soft, No Tenderness Back: No CVA Tenderness Extremity: Normal ROM, No Pedal Edema, No Calf Tenderness Neurological/Psych: Oriented x3, Normal Motor, Normal Sensation ED Course And Treatment - Laboratory Results Urine POC: Negative ECG: Interpreted By Me, Viewed By Me ECG Rhythm: Sinus Rhythm, R BBB (incomplete) ECG Interpretation: No Changes From Prior Rate From EC O2 Sat by Pulse Oximetry: 100 Pulse Ox Interpretation: Normal Reassessment Condition: Improved Medical Decision Making Medical Decision Making: PERC rule negative. Pt was recently admitted and had extensive workup for syncope. Disposition Counseled Patient/Family Regarding: Studies Performed, Diagnosis, Need For Followup - Disposition Referrals: [facility] [Outside] Disposition: HOME/ ROUTINE Disposition Time: 21:52 Condition: IMPROVED Additional Instructions: Follow up with your doctor or in the clinic for further evaluation and treatment. Return to the ER if you develop worsening of symptoms or if you have any other concerns. Instructions: Syncope (ED) - Clinical Impression Clinical Impression: Syncope
[2016-09-23 22:01] VITALS: BP 101/57; PULSE 67; TEMP 98
--- NOTE | 2016-09-25 08:45 | CARD ---
APPROVED REPORT EKG Measurement Heart [id number] 114P66 [id number] <Conclusion> Normal sinus rhythm with sinus arrhythmia Incomplete right bundle branch block Borderline ECG
== END 2016-09-23 22:30 | disposition home or self-care (01) ==
LOC: C.ER 18:47
DX: R55 Syncope and collapse (principal)

== ENCOUNTER 2016-09-28 21:22 | Emergency (ER) | payer OTHER ==
[2016-09-28 21:22] VITALS: BMI 22.3
--- NOTE | 2016-09-28 21:43 | C.PDOC ---
History Of Present Illness This is the tenth ed visit this month for this 25 year old female presents to the ED following being discharged from [facility] two hours prior to arrival to [facility]. Patient states [facility] "did nothing" for the symptoms of abdominal pain which prompted her visit to [place]. Records show [place] ED performed urinalysis and blood test which came back normal, treated her with IVF and meds. Patient denies any fever, diarrhea, vomiting but feels bloated. Time Seen by Provider: 09/28/16 21:33 History Per: Patient History/Exam Limitations: no limitations Onset/Duration Of Symptoms: Hrs Current Symptoms Are (Timing): Still Present Reports Recently: Seen In ED (At [facility], two hours prior to arrival at [facility] ) Recent travel outside of the [place]: No Additional History Per: Prior Records Past Medical History Reviewed: Historical Data, Nursing Documentation, Vital Signs Vital Signs: Last Vital Signs Temp 98.1 F 09/28/16 21:38 Pulse 58 L 09/28/16 21:38 Resp 16 09/28/16 21:38 BP 101/58 L 09/28/16 21:38 Pulse Ox 100 09/28/16 21:38 - Medical History PMH: Anemia, Anxiety, Asthma, Bronchitis Family History: States: Unknown Family Hx - Social History Hx Tobacco Use: No Hx Alcohol Use: No Hx Substance Use: No Review Of Systems Constitutional: Negative for: Fever, Chills, Sweats Cardiovascular: Negative for: Chest Pain, Palpitations Respiratory: Negative for: Cough, Shortness of Breath Gastrointestinal: Positive for: Vomiting, Abdominal Pain. Negative for: Nausea , Diarrhea Physical Exam - Physical Exam Appears: Non-toxic, No Acute Distress Skin: Warm, Dry Oral Mucosa: Moist Neck: Supple Chest: Symmetrical, No Deformity Cardiovascular: Rhythm Regular, No Murmur Respiratory: No Rales, No Rhonchi, No Stridor, No Wheezing Gastrointestinal/Abdominal: Soft, No Tenderness, No Distention, No Guarding, No Rebound Neurological/Psych: Oriented x3, Normal Speech, Normal Cognition Medical Decision Making Medical Decision Making: With extensive w/o two hours ago and benign abd exam here no further eval/treat indicated Plan dc home Disposition Counseled Patient/Family Regarding: Diagnosis, Need For Followup - Disposition Referrals: [facility] at [facility] [Outside] Disposition: HOME/ ROUTINE Disposition Time: 21:41 Condition: GOOD Additional Instructions: Follow up in the Clinic Forms: General Discharge Instructions - Clinical Impression Clinical Impression: Abdominal pain - Scribe Statement The provider has reviewed the documentation as recorded by the Scribe Hanane Camargo All medical record entries made by the Bettyibgwendolyn were at my direction and personally dictated by me. I have reviewed the chart and agree that the record accurately reflects my personal performance of the history, physical exam, medical decision making, and the department course for this patient. I have also personally directed, reviewed, and agree with the discharge instructions and disposition.
[2016-09-28 21:44] VITALS: BP 101/58; PULSE 58; RESP 16; TEMP 98.1; O2SAT 100
== END 2016-09-28 21:51 | disposition home or self-care (01) ==
LOC: C.ER 21:22
DX: R10.9 Unspecified abdominal pain (principal)

== ENCOUNTER 2016-10-07 17:42 | Emergency (ER) | payer OTHER ==
[2016-10-07 17:42] VITALS: BMI 21.2
[2016-10-07 18:01] VITALS: BP 99/64; PULSE 69; TEMP 98.1; O2SAT 100
[2016-10-07 18:52] VITALS: RESP 18
--- NOTE | 2016-10-07 19:05 | C.PDOC ---
History Of Present Illness 25 yo female with PMH of asthma complains of shortness of breath today and no relief with her inhaler. Denies any fever, cough, bloody sputum, chest pain. Time Seen by Provider: 10/07/16 18:55 Chief Complaint (Nursing): Shortness Of Breath History Per: Patient History/Exam Limitations: no limitations Onset/Duration Of Symptoms: Hrs Current Symptoms Are (Timing): Still Present Severity: Mild Recent travel outside of the [place]: No Past Medical History Reviewed: Historical Data, Nursing Documentation, Vital Signs Vital Signs: Last Vital Signs Temp 98.1 F 10/07/16 18:01 Pulse 69 10/07/16 18:01 Resp 18 10/07/16 18:44 BP 99/64 L 10/07/16 18:01 Pulse Ox 100 10/07/16 20:20 - Medical History PMH: Anemia, Anxiety, Asthma, Bronchitis Family History: States: Unknown Family Hx - Social History Hx Tobacco Use: No Hx Alcohol Use: No (denies) Hx Substance Use: No (denies) - Immunization History Hx Tetanus Toxoid Vaccination: No Hx Influenza Vaccination: No Hx Pneumococcal Vaccination: No Review Of Systems Constitutional: Negative for: Fever Cardiovascular: Negative for: Chest Pain Respiratory: Positive for: Shortness of Breath. Negative for: Cough, Sputum ( no bloody sputum) Gastrointestinal: Negative for: Vomiting Physical Exam - Physical Exam Appears: Non-toxic, No Acute Distress Skin: Warm, Dry, No Rash Head: Atraumatic, Normacephalic Throat: Normal, No Erythema Neck: Normal, Normal ROM, Supple Chest: Symmetrical Cardiovascular: Rhythm Regular, No Murmur Respiratory: Normal Breath Sounds, No Accessory Muscle Use, No Rales, No Rhonchi , No Wheezing Extremity: Bilateral: Atraumatic Neurological/Psych: Oriented x3, Normal Speech ED Course And Treatment O2 Sat by Pulse Oximetry: 100 (room air) Pulse Ox Interpretation: Normal Medical Decision Making Medical Decision Making: Prior records reviewed and patient has multiple ER visits to all [facility] sites for similar symptoms and full workup including cardiac, PE and all normal results. Patient has no fever, appears well and in no acute respiratory distress. Lungs clear bilaterally and oxygen saturation is 100%. 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 Disposition Counseled Patient/Family Regarding: Need For Followup, Rx Given - Disposition Referrals: [facility] [Outside] [facility] [Outside] Disposition: HOME/ ROUTINE Disposition Time: 19:03 Condition: STABLE Additional Instructions: Follow up with your primary medical doctor or clinic in 2-5 days for further evaluation. Take medications as prescribed. Return to the emergency department at any time if symptoms persist or worsen. Prescriptions: Albuterol 0.083% [Albuterol 0.083% Inhal Rosa Elena (2.5 mg/3 ml) UD] 2.5 mg IH Q4 # 100 neb Mask, Face [Nebulizer Aerosol Mask Adult] 1 dev XX PRN PRN #1 dev PRN Reason: Shortness Of Breath Nebulizer [Aerosol Therapy Nebulizer] 1 dev XX PRN PRN #1 dev PRN Reason: Shortness Of Breath Instructions: Asthma (DC) - POA Present On Arrival: None - Clinical Impression Clinical Impression: Dyspnea - PA / BASE MANAGER / Resident Statement MD/DO has reviewed & agrees with the documentation as recorded. - Scribe Statement The provider has reviewed the documentation as recorded by the Scribgwendolyn Malone All medical record entries made by the Bettyibgwendolyn were at my direction and personally dictated by me. I have reviewed the chart and agree that the record accurately reflects my personal performance of the history, physical exam, medical decision making, and the department course for this patient. I have also personally directed, reviewed, and agree with the discharge instructions and disposition. Wells Criteria for PE - Wells Criteria for Pulmonary Embolism Clinical Signs and Symptoms of DVT: No P.E is #1 Diagnosis, or Equally Likely: No Heart Rate >100: No Immobilization at least 3 days;Surgery previous 4 weeks: No Previous, objectively diagnosed PE or DVT: No Hemoptysis: No Malignancy w/treatment within 6 months, or palliative: No Total Score: 0 Curb-65 Severity Score - CURB-65 Severity Score Confusion: No Respiratory Rate greater than/equal to 30: No Systolic BP <90 or Diastolic BP less than/equal 60mmHg: No Age >64: No Curb-65 Score: 0 Percentage 30-day mortality: 0.6%
== END 2016-10-07 19:09 | disposition home or self-care (01) ==
LOC: C.ER 17:42
DX: R06.00 Dyspnea, unspecified (principal)

== ENCOUNTER 2016-10-08 21:02 | Emergency (ER) | payer OTHER ==
[2016-10-08 21:02] VITALS: BMI 21.2
[2016-10-08 21:07] VITALS: BP 99/62; PULSE 62; RESP 18; TEMP 97.6; O2SAT 100
[2016-10-08] MEDS ORDERED: Alum-Mag Hydrox-Simethicone Susp (30 mL) PO STA (21:33)
--- NOTE | 2016-10-08 21:34 | C.PDOC ---
History Of Present Illness 25 y/o female presents to the ED for evaluation of chest pain which began around 20 minutes ago. Patient states she is unable to describe the pain but felt like a wave that started in chest and spread throughout body. She can describe a burning sensation in her abdomen and chest. Patient states since she had endoscopy she does not feel herself and has discomfort. Patient states she been seen in other hospitals and they tell her it is anxiety, but she thinks it is different. Patient took Aspirin prior to arrival and symptoms resolved. Patient denies fever, chills, shortness of breath, cough, dizziness, nausea, vomiting, or extremity numbness/weakness. Time Seen by Provider: 10/08/16 21:10 Chief Complaint (Nursing): Chest Pain History Per: Patient History/Exam Limitations: no limitations Onset/Duration Of Symptoms: Mins (20) Current Symptoms Are (Timing): Gone Severity: Mild Reports Recently: Seen In ED, Hospitalized Additional History Per: Patient Past Medical History Reviewed: Historical Data, Nursing Documentation, Vital Signs Vital Signs: Last Vital Signs Temp 97.6 F 10/08/16 21:02 Pulse 62 10/08/16 21:02 Resp 18 10/08/16 21:02 BP 99/62 L 10/08/16 21:02 Pulse Ox 100 10/08/16 23:31 - Medical History PMH: Anemia, Anxiety, Asthma, Bronchitis Surgical History: No Surg Hx Family History: States: Unknown Family Hx - Social History Hx Tobacco Use: No Hx Alcohol Use: No (denies) Hx Substance Use: No (denies) - Immunization History Hx Tetanus Toxoid Vaccination: No Hx Influenza Vaccination: No Hx Pneumococcal Vaccination: No Review Of Systems Except As Marked, All Systems Reviewed And Found Negative. Constitutional: Negative for: Fever, Chills Eyes: Negative for: Pain, Vision Change ENT: Negative for: Nose Congestion, Throat Pain Cardiovascular: Positive for: Chest Pain. Negative for: Palpitations Respiratory: Negative for: Cough, Shortness of Breath Gastrointestinal: Negative for: Nausea, Vomiting Genitourinary: Negative for: Dysuria Musculoskeletal: Positive for: Other (+generalized body aches ) Skin: Negative for: Rash, Bruising Neurological: Negative for: Weakness, Numbness, Headache, Dizziness Physical Exam - Physical Exam Appears: Non-toxic, No Acute Distress Skin: Warm, Dry, No Diaphoretic, No Pale, No Rash Head: Atraumatic, Normacephalic Eye(s): bilateral: Normal Inspection, EOMI Nose: Normal Oral Mucosa: Moist Throat: Normal, No Erythema, No Exudate Neck: Normal ROM, Supple Chest: Symmetrical, No Deformity, No Tenderness Cardiovascular: Rhythm Regular, No Murmur Respiratory: Normal Breath Sounds, No Rales, No Rhonchi, No Wheezing Gastrointestinal/Abdominal: Bowel Sounds, Soft, No Tenderness, No Distention, No Guarding, No Rebound Back: Normal Inspection, No Vertebral Tenderness, No Paraspinal Tenderness Extremity: Bilateral: Atraumatic, No Pedal Edema, Normal Color And Temperature, Normal ROM Neurological/Psych: Oriented x3, Normal Speech Gait: Steady ED Course And Treatment ECG: Interpreted By Me, Viewed By Me ECG Rhythm: Sinus Rhythm ECG Interpretation: No Acute Changes, No Changes From Prior Rate From EC O2 Sat by Pulse Oximetry: 100 (on RA) Pulse Ox Interpretation: Normal Medical Decision Making Medical Decision Making: Impression: 25 y/o female with chest and abdominal pain, likely gastritis Plan: * EKG * CXR * GI cocktail Prior Records Reviewed: Patient has multiple prior ER visits with similar complaints. Patient has previously undergone extensive workup, with negative results. Patient is likely homeless, as she is often requesting a sandwich and malingering. Patient had EGD on 10/04/16 which showed gastritis EKG shows normal sinus rhythm rate approximately 65 with a sinus arrhythmia and no acute ST or T-wave changes. No changes from prior EKG Patient appears well nontoxic and in no acute distress. Her lungs are clear bilaterally with good air entry, heart is regular and chest is nontender. I discuss with patient her recent testing and explain symptoms likely related to gastritis and recommend medications and dietary changes. I also encouraged patient to follow up outpatient for chronic/recurrent symptoms. Plan is for CXR and GI cocktail. Patient does not want chest xray stating she no longer has pain or any SOB. She does not want medications, she will try maalox. [id number] RN informs me the patient does not want the medication. Patient and boyfriend are agitated and making scene, patient was escorted out of ED. 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 - Scribe Statement The provider has reviewed the documentation as recorded by the Scribe (Paz Jang) All medical record entries made by the Scribe were at my direction and personally dictated by me. I have reviewed the chart and agree that the record accurately reflects my personal performance of the history, physical exam, medical decision making, and the department course for this patient. I have also personally directed, reviewed, and agree with the discharge instructions and disposition.
[2016-10-08] MEDS ORDERED: Alum-Mag Hydrox-Simethicone Susp (30 mL) ONE (21:37)
== END 2016-10-08 22:01 | disposition home or self-care (01) ==
LOC: C.ER 21:02
DX: K29.70 Gastritis, unspecified, without bleeding (principal); R07.89 Other chest pain

== ENCOUNTER 2016-10-16 01:28 | Emergency (ER) | payer OTHER ==
[2016-10-16 01:29] VITALS: BMI 21.2
[2016-10-16 01:46] VITALS: RESP 20; O2SAT 100
[2016-10-16] MEDS ORDERED: Aspirin 325 mg EC Tablets PO STA (03:58)
--- NOTE | 2016-10-16 03:58 | C.PDOC ---
History Of Present Illness Pt presents stating that she has had some chest pain intermittently since this am.Dull aching discomfort. Pt does not appear to be in any distress. No f/c/n/ v. Has had numerous negative work ups, including a recent endoscopy. Time Seen by Provider: 10/16/16 03:57 Chief Complaint (Nursing): Chest Pain History Per: Patient History/Exam Limitations: no limitations Onset/Duration Of Symptoms: Days Current Symptoms Are (Timing): Still Present Context: Other Severity: Mild Pain Scale Rating Of: 1 Quality: Dull Associated Symptoms: denies: Nausea, Dyspnea, Diaphoresis, Syncope Exacerbating Factors: None Alleviating Factors: None Recent travel outside of the [place]: No Additional History Per: Family Past Medical History Reviewed: Historical Data, Nursing Documentation, Vital Signs Vital Signs: Last Vital Signs Temp 98.7 F 10/16/16 01:44 Pulse 62 10/16/16 01:44 Resp 20 10/16/16 01:44 BP 99/58 L 10/16/16 01:44 Pulse Ox 100 10/16/16 04:51 - Medical History PMH: Anemia, Anxiety, Asthma, Bronchitis Denies: Chronic Kidney Disease Family History: States: No Known Family Hx - Social History Hx Tobacco Use: No Hx Alcohol Use: No (denies) Hx Substance Use: No (denies) - Immunization History Hx Tetanus Toxoid Vaccination: No Hx Influenza Vaccination: No Hx Pneumococcal Vaccination: No Review Of Systems Constitutional: Negative for: Fever, Chills ENT: Negative for: Throat Pain Cardiovascular: Positive for: Chest Pain Respiratory: Negative for: Shortness of Breath Gastrointestinal: Negative for: Nausea, Vomiting, Abdominal Pain Genitourinary: Negative for: Dysuria Musculoskeletal: Negative for: Back Pain Skin: Negative for: Rash, Lesions, Jaundice Neurological: Negative for: Weakness Psych: Negative for: Anxiety Physical Exam - Physical Exam Appears: Non-toxic, No Acute Distress Skin: Warm, Dry Head: Normacephalic Eye(s): bilateral: Normal Inspection Oral Mucosa: Moist Neck: Supple Chest: Symmetrical Cardiovascular: Rhythm Regular Respiratory: No Rales, No Rhonchi, No Wheezing Gastrointestinal/Abdominal: Soft, No Tenderness Back: No CVA Tenderness Extremity: Normal ROM Extremity: Bilateral: Atraumatic Neurological/Psych: Oriented x3, Normal Speech, Normal Cognition Gait: Steady ED Course And Treatment - Laboratory Results Result Diagrams: 10/16/16 04:15 10/16/16 04:15 ECG: Interpreted By Me, Viewed By Me ECG Rhythm: Sinus Rhythm (62), Nonspecific Changes (unchanged from previous) O2 Sat by Pulse Oximetry: 100 Pulse Ox Interpretation: Normal Progress Note: cardiac work up Medical Decision Making Medical Decision Making: I considered the following diagnoses: acute coronary syndrome, pulmonary embolism, lower respiratory infection, aortic dissection/aneurysm, pneumothorax , pericarditis, esophagitis/GERD, zoster and esophageal rupture but found them to be unlikely based on the history, physical exam, and diagnostics. My conclusions regarding the unlikely diagnoses were based on: the absence of significant EKG abnormalities, the lack of suggestive x-ray findings, the absence of significant abnormalities on cardiac monitoring, the absence of asymmetric pulses. Disposition Counseled Patient/Family Regarding: Studies Performed, Diagnosis, Need For Followup - Disposition Referrals: [facility] [Outside] Disposition: HOME/ ROUTINE Disposition Time: 03:58 Condition: FAIR Instructions: Chest Pain (DC), Anxiety (ED) - Clinical Impression Clinical Impression: Atypical chest pain, Anxiety
[2016-10-16] MEDS ORDERED: Aspirin 325 mg EC Tablets PO ONE (04:13)
[2016-10-16 04:19] LABS: BASO % 0.8 % (0.0-2.0); EOS # 0.1 K/uL (0.0-0.7); EOS % 1.3 % (0.0-4.0); HEMATOCRIT 36.6 % (34.0-47.0); LYMPH # 2.7 K/uL (1.0-4.3); LYMPH % 51.3 % (20.0-40.0); MEAN CELL VOLUME 77.1 fL (81.0-99.0); MEAN CORPUSCULAR HEMOGLOBIN 24.7 pg (27.0-31.0); MEAN PLATELET VOLUME 7.9 fL (7.2-11.7); MONO # 0.6 K/uL (0.0-0.8); MONO % 11.1 % (0.0-10.0); RED CELL DISTRIBUTION WIDTH 14.1 % (11.5-14.5); WHITE BLOOD COUNT 5.2 K/uL (4.8-10.8)
[2016-10-16 04:28] LABS: CHLORIDE 104 mmol/L (98-107); SODIUM 139 mmol/L (132-148)
[2016-10-16 04:29] LABS: INR 1.1; POTASSIUM 3.2 mmol/L (3.6-5.2)
[2016-10-16 04:31] LABS: ALB/GLOB RATIO 1.3 (1.0-2.1); ALKALINE PHOSPHATASE 68 U/L (38-126); AST/SGOT 20 U/L (14-36); BILIRUBIN,TOTAL 0.4 mg/dL (0.2-1.3); CARBON DIOXIDE 24 mmol/L (22-30); GFR AFRICAN-AMERICAN > 60; TOTAL PROTEIN 6.9 g/dL (6.3-8.3)
[2016-10-16 04:32] LABS: ALT/SGPT 25 U/L (9-52); BLOOD UREA NITROGEN 16 mg/dL (7-17); CALCIUM 8.2 mg/dl (8.6-10.4); GLUCOSE,RANDOM 76 mg/dL (65-105)
[2016-10-16] MEDS ORDERED: Potassium Chloride 10 mEq ER Tab PO STA (04:48)
[2016-10-16 04:57] VITALS: BP 98/58; PULSE 64; TEMP 97.7
[2016-10-16] MEDS ORDERED: Potassium Chloride 20 mEq ER Tab PO ONE (04:59)
--- NOTE | 2016-10-17 23:17 | CARD ---
APPROVED REPORT EKG Measurement Heart [id number] DC [id number] <Conclusion> Normal sinus rhythm with sinus arrhythmia Normal ECG
== END 2016-10-16 05:13 | disposition home or self-care (01) ==
LOC: C.ER 01:28
DX: R07.89 Other chest pain (principal); F41.9 Anxiety disorder, unspecified; E87.6 Hypokalemia